=== PATIENT | male | born 1975 | race Hispanic/Latino ===

== ENCOUNTER 2020-11-29 06:55 | Day surgery (SDC) | payer MEDICARE ==
[~2020-11-29] VITALS: Ht 172.7 cm; Wt 106.6 kg
[2020-11-29] VITALS (18 sets, daily range): BP systolic 89–164; BP diastolic 40–86
[~2020-11-29 06:55] MED LIST: 0.9%NACL 1000ML 1,000 ML IV ONE; INSU3INS3 SQ; LISI10TA24 PO
[2020-11-29] MEDS ORDERED: PROPOFOL 10 MG/ML 20ML VIAL IV ONE ×3 (08:46→09:07)
== END 2020-11-29 11:15 | disposition home or self-care (01) ==
LOC: ENDO 06:55 → DAH 06:55 → ENDO 11:15
PROVIDERS: ATTEND Internal Medicine Gastroenterology
DX: K31.89 Other diseases of stomach and duodenum (principal); Z20.822 Contact with and (suspected) exposure to COVID-19; K31.7 Polyp of stomach and duodenum; E11.22 Type 2 diabetes mellitus with diabetic chronic kidney disease; I12.0 Hypertensive chronic kidney disease with stage 5 chronic kidney disease or end stage renal disease; N18.6 End stage renal disease; Z99.2 Dependence on renal dialysis; Z79.899 Other long term (current) drug therapy
CPT/HCPCS: 36415; 43237; 82948 ×2; 84132; 87635; A4215 ×2; A4221; A4222; A4223; A4606; A4620; A4657; A4663; C9803; J2704 ×3; J7030

== ENCOUNTER 2020-12-27 07:36 | Day surgery (SDC) | payer MEDICARE ==
[2020-12-27] VITALS (16 sets, daily range): BP systolic 137–191; BP diastolic 65–96
[~2020-12-27 07:36] MED LIST changes: -0.9%NACL 1000ML 1,000 ML IV ONE; +OMEP20TA2 PO
[2020-12-27] MEDS ORDERED: 0.9%NACL 1000ML 1,000 ML IV ONE (08:22)
[2020-12-27] MEDS ORDERED: PROPOFOL 10 MG/ML 20ML VIAL IV ONE ×2 (10:48→11:48)
[2020-12-27] MEDS ORDERED: SUCCINYLCHOLINE 200MG/10ML SYR ONE (10:50)
[2020-12-27] MEDS ORDERED: ROCURONIUM 10MG/1ML SYR 10 MG/ML ML ONE (10:59)
[2020-12-27] MEDS ORDERED: SUGAMMADEX SODIUM 200 MG/2 ML VIAL IV ONE (11:00)
[2020-12-27] MEDS ORDERED: EPHEDRINE SULFATE 50 MG/ML AMPULE ONE (11:22)
[2020-12-27] MEDS ORDERED: EPINEPHRINE PF 1MG AMP ONE (11:25)
[2020-12-27] MEDS ORDERED: GLUCAGON 1MG KIT 1 MG ML ONE (11:34)
== END 2020-12-27 13:55 | disposition home or self-care (01) ==
LOC: ENDO 07:36 → DAH 07:36 → ENDO 13:55
PROVIDERS: ATTEND Internal Medicine Gastroenterology
DX: D13.1 Benign neoplasm of stomach (principal); Z20.822 Contact with and (suspected) exposure to COVID-19; K31.89 Other diseases of stomach and duodenum; I12.0 Hypertensive chronic kidney disease with stage 5 chronic kidney disease or end stage renal disease; E11.22 Type 2 diabetes mellitus with diabetic chronic kidney disease; N18.6 End stage renal disease; Z79.899 Other long term (current) drug therapy; Z98.890 Other specified postprocedural states; Z72.89 Other problems related to lifestyle
CPT/HCPCS: 36415; 43236; 43270; 82948 ×2; 84132; 87635; 88305; A4215 ×3; A4221; A4222; A4223; A4606; A4620; A4649 ×2; A4657 ×2; A4663; C9803; J0171; J0330; J1610; J2704 ×2; J3490; J7030; 43251; 43254

== ENCOUNTER 2021-04-25 08:19 | Day surgery (SDC) | payer MEDICARE, OTHER ==
[~2021-04-25] VITALS: Ht 175.3 cm; Wt 108.9 kg
[2021-04-25] VITALS (7 sets, daily range): BP systolic 97–197; BP diastolic 65–97
[~2021-04-25 08:19] MED LIST changes: +0.9%NACL 1000ML 1,000 ML IV ONE; -LISI10TA24 PO; +LISI20TA24 PO; +OMEP20CA12 PO; -OMEP20TA2 PO
[2021-04-25] MEDS ORDERED: PROPOFOL 10 MG/ML 20ML VIAL IV ONE (10:20)
== END 2021-04-25 11:06 | disposition home or self-care (01) ==
LOC: DAH 08:19 → ENDO 08:19
PROVIDERS: ATTEND Internal Medicine Gastroenterology
DX: D13.2 Benign neoplasm of duodenum (principal); K29.30 Chronic superficial gastritis without bleeding; I12.0 Hypertensive chronic kidney disease with stage 5 chronic kidney disease or end stage renal disease; N18.6 End stage renal disease; E11.22 Type 2 diabetes mellitus with diabetic chronic kidney disease; Z79.4 Long term (current) use of insulin; Z79.899 Other long term (current) drug therapy; Z20.822 Contact with and (suspected) exposure to COVID-19
CPT/HCPCS: 36415; 43235; 82948 ×2; 84132; 87635; A4215 ×2; A4221; A4222; A4223; A4606; A4620; A4663; C9803; J2704; J7030